=== PATIENT | female | born 1975 | race Caucasian/White ===

== ENCOUNTER → 2018-04-21 | Outpatient (CLI) | payer OTHER ==
[~2018-04-21] MED LIST: HYDR-4309 PO; ONDA4TAB PO; PREN-127 PO; PREN1TAB44
== END ==
LOC: LAB 15:42
PROVIDERS: ATTEND Obstetrics & Gynecology
DX: Z34.92 Encounter for supervision of normal pregnancy, unspecified, second trimester (principal)
CPT/HCPCS: 36415; 82105

== ENCOUNTER → 2018-05-21 | Outpatient (CLI) | payer OTHER ==
--- NOTE | 2018-05-21 11:24 | RADIOLOGY IMAGING REPORT ---
FACILITY: [facility] PATIENT NAME: Calli Boalnd : 1975 MR: [id number] V: [id number] EXAM DATE: ORDERING PHYSICIAN: DOMITILA ALFREDO TECHNOLOGIST: Location: [facility] [place] Patient: Calli Boland : 1975 Visit/Account:[id number] Date of Sevice: 05/21/2018 OB ANATOMICAL SURVEY INDICATION: Anatomic survey, advanced maternal age. COMPARISON: None available FINDINGS: Single, living, intrauterine gestation is present in vertex position. Gestational heart rate measure d 153 bpm. Amniotic fluid index 16 cm, largest pocket 4.7 cm. The placenta is low-lying and posteriorly positioned without previa. The lower placental tip resides 1.3 cm from the cervix. BPD 5 cm, 21 weeks two days Head circumflex conference 18.8 cm, 21 weeks one day Abdominal circumference 17 cm, 22 weeks zero days Femur length 3.3 cm, 20 weeks three days Estimated gestational age based on ultrasound 21 weeks two days Estimated gestational age based on last menstrual period is 20 weeks one day. Estimated gestational weight 408 g, 94th percentile. Normal facial profile, normal spine, normal kidneys, normal outflow tracts, normal four-chamber heart view, normal stomach and bladder, normal intracranial structures, expected three-vessel cord, four e xtremities visualized, normal cord insertion. The cervix is normal in length measuring 5.6 cm. IMPRESSION: 1. Single, living, intrauterine gestation at 21 weeks two days based on ultrasound. Estimated gestat ional age based on last menstrual period is 20 weeks one day. 2. Normal anatomic survey. 3. ASMITA 16 cm. 4. Posterior placenta without previa. Report Dictated By: Gonzales Cook MD at 05/21/2018 11:14 AM Report E-Signed By: Gonzales Cook MD at 05/21/2018 11:20 AM WSN:DENYS
== END ==
LOC: RAD 07:59
PROVIDERS: ATTEND Obstetrics & Gynecology
DX: Z02.9 Encounter for administrative examinations, unspecified (principal)
CPT/HCPCS: 76811

== ENCOUNTER → 2018-05-26 | Outpatient (CLI) | payer OTHER | LOC: LAB 10:31 | PROVIDERS: ATTEND Obstetrics & Gynecology | DX: R00.2 Palpitations (principal) | CPT/HCPCS: 36415; 84443 ==

== ENCOUNTER → 2018-07-17 | Outpatient (CLI) | payer OTHER ==
[~2018-07-17] MED LIST changes: +DIPH0.5D12 IM; +RHO(150015 IM
[2018-07-17 14:51] LABS: PLATELET COUNT, AUTOMATED 215 K/uL (150-450)
== END ==
LOC: LAB 09:29
PROVIDERS: ATTEND Obstetrics & Gynecology
DX: O09.90 Supervision of high risk pregnancy, unspecified, unspecified trimester (principal)
CPT/HCPCS: 36415; 82950; 85025

== ENCOUNTER → 2018-07-21 | Outpatient (CLI) | payer OTHER | LOC: LAB 08:38 | PROVIDERS: ATTEND Obstetrics & Gynecology | DX: O99.810 Abnormal glucose complicating pregnancy (principal) | CPT/HCPCS: 36415; 82951; 82952 ==

== ENCOUNTER → 2018-09-08 | Outpatient (CLI) | payer OTHER ==
[~2018-09-08] MED LIST changes: +FLU60SYR36 IM; -HYDR-4309 PO; +HYDR-653 PO
== END ==
LOC: LAB 11:59
PROVIDERS: ATTEND Obstetrics & Gynecology
DX: Z34.93 Encounter for supervision of normal pregnancy, unspecified, third trimester (principal)
CPT/HCPCS: 87081

== ENCOUNTER 2018-10-04 19:03 | Inpatient (IN) | payer OTHER ==
[~2018-10-04] VITALS: Ht 162.6 cm; Wt 70.3 kg
[~2018-10-04 19:03] MED LIST changes: +BENZ100C4 PO
[2018-10-04] MEDS ORDERED: FAMOTIDINE(*) 20MG/50ML PREMIX 50 ML IVPB PRN (19:07)
[2018-10-04] MEDS ORDERED: OXYTOCIN 30 UNIT/D5LR 500 ML 500 ML IV PRN (19:07)
[2018-10-04] MEDS ORDERED: ZOLPIDEM TARTRATE 5 MG TAB PO PRN ×2 (19:10→19:50)
[2018-10-04] MEDS ORDERED: MISOPROSTOL 25 MCG CAP PV PRN (19:10)
[2018-10-04] MEDS ORDERED: LIDOCAINE 1% LOCAL 300 MG/30ML INJ PRN (19:10)
[2018-10-04] MEDS ORDERED: DINOPROSTONE 10 MG INSERT PV ONE (19:10)
[2018-10-04] MEDS ORDERED: TERBUTALINE SULF 1 MG/ML VIAL SUBQ PRN (19:10)
[2018-10-04] MEDS ORDERED: METOCLOPRAMIDE 10 MG/2 ML SDV IVP PRN (19:10)
[2018-10-04] MEDS ORDERED: LIDOCAINE/SOD BICARB 8.4% SYR SC PRN (19:10)
[2018-10-04 19:30] VITALS: BP 136/79; Ht 162.6 cm; Wt 70.3 kg
[2018-10-04] MEDS ORDERED: CLINDAMYCIN 900 MG/D5W 50 ML 50 ML IVPB PRN (19:48)
[2018-10-04] MEDS ORDERED: ONDANSETRON 4 MG/2 ML VIAL IVP PRN (19:50)
--- NOTE | 2018-10-04 20:13 | History & Physical ---
History of Present Illness EDC per LMP: Oct 07, 2018 Estimated Gestational Age: 39.4 Chief Complaint Induction for AMA History of Present Illness 43-year-old at 39w4d by LMP presents for induction due to AMA. She denies UCx, VB, LOF. +FM. No preeclampsia symptoms. PNC by IMG. PNR reviewed. otherwise complicated by Rh negative. She also failed her 1hr GTT but passed her 3hr GTT. GBS negative. Posterior placenta. History Patient's Blood Type: O Negative Rubella Status: Immune Group B Strep Screen: Negative Obstetrical History: Hx 2 SABs Past Medical History: PMH: None PSH: Breast surgery, humerus fracture Allergies: Coded Allergies: Quinolones (Unverified Allergy, Unknown, 05/30/15) Sulfa (Sulfonamide Antibiotics) (Unverified Allergy, Unknown, 05/30/15) penicillin (Unverified Allergy, Unknown, 05/30/15) Social History: No T/E/D. . Family History: Colitis FATHER, , Age:50 Duodenal cancer BROTHER OR SISTER FH: Crohn's disease FATHER, , Age:50 FH: HTN (hypertension) paternal grandfather FH: colon cancer in relative <50 years old FATHER, , Age:50 FH: uterine cancer MOTHER, Age:69 Hereditary nonpolyposis colorectal cancer (HNPCC) MOTHER, Age:69 Med Rec Home Meds Active Scripts Benzonatate 100 Mg Cap (TESSALON PERLE 100 MG CAP) 100 Mg Capsule, 100 MG PO TID PRN for cough, #20 CAP 0 Refills Prov:DOMITILA ALFREDO MD 09/18/18 Reported Medications Vit No.124/Iron/FA ( Vitamin Tablet) 1 Each Tablet 04/20/18 Review of Systems Constitutional: No Fever Neurological: No Syncope Eyes: No Vision Change Cardiovascular: No Chest Pain, No Palpitations Respiratory: No Shortness of Breath Gastrointestinal: No Nausea, No Vomiting, No Diarrhea Genitourinary: No Dysuria Musculoskeletal: No Pain Psychiatric: No Depression, No Anxiety Exam General Exam Vital Signs VS reviewed General Apperance: Alert/Awake/No Acute Distress Cardiovascular: Regular Rate and Rhythm Respiratory: No Respiratory Distress Abdomen: Gravid - Non-Tender : Normal Musculoskeletal: No Weakness/Pain Extremities: No Cyanosis,Clubbing or Edema Integumentary: Skin Intact without Lesions or Rash Psychological: Alert & Oriented X3, Appropriate Mood & Affect Cervical Dialation: 0 Cervical Effacement (%): 75 Cervical Consistency: Moderate Cervical Position: Posterior Station: 0 Presentation: Vertex Uterine Contractions(Q min): 10 Uterine Contraction Strength: Mild UC Resting Tone: Soft Fetus FHT Category: I Assessment and Plan Problems: (1) AMA (advanced maternal age) primigravida 35+ Assessment & Plan: 43-year-old at 39w4d by LMP presents for induction due to AMA. Cervix is not favorable. Will initiate misoprostol for ripening. Continue to monitor. GBS negative. (2) Rh negative status during Assessment & Plan: Rhophylac last given 07/17/18. Will evaluate need . (3) 39 weeks gestation of Problem Qualifiers (1) AMA (advanced maternal age) primigravida 35+: Trimester: third trimester Qualified Codes: O09.513 - Supervision of elderly primigravida, third trimester (2) Rh negative status during : Trimester: third trimester Qualified Codes: O09.893 - Supervision of other high risk pregnancies, third trimester; Z67.91 - Unspecified blood type, rh negative DOMITILA ALFREDO MD Oct 04, 2018 20:13
[2018-10-04 20:20] LABS: PLATELET COUNT, AUTOMATED 205 K/uL (150-450)
[2018-10-04] MEDS: MISOPROSTOL 25 MCG CAP PV PRN (20:20)
[2018-10-05] MEDS: MISOPROSTOL 25 MCG CAP PV PRN (00:22)
[2018-10-05] MEDS: fentaNYL CITR 100 MCG/2 ML AMP IVP PRN ×2 (07:06→07:19)
[2018-10-05] MEDS: LR(*) 1000 ML BAG 1,000 ML IV PRN ×2 (08:00→09:23)
--- NOTE | 2018-10-05 08:25 | Labor Progress Note ---
Labor Subjective Progress Notes Subjective Patient is breathing through contractions. She has received one dose of Fentanyl. She is now requesting an epidural. Labor Objective Vital Signs Vital Signs Date Time Temp Pulse Resp B/P (MAP) Pulse Ox O2 Delivery O2 Flow Rate FiO2 10/04/18 19:30 97.4 85 16 136/79 (98) 95 Room Air Vaginal Discharge/Fluid?: Clear Fluid Cervical Dialation: 4 Cervical Effacement (%): 100 Cervical Consistency: Soft Cervical Position: Mid Station: 0 Presentation: Vertex Uterine Contractions(Q min): 3 Uterine Contraction Strength: Strong UC Resting Tone: Soft Fetus FHT Category: I General Exam General Appearance: Alert/Awake/No Acute Distress Abdomen: Gravid - Non-Tender Extremities: No Cyanosis,Clubbing or Edema Integumentary: Skin Intact without Lesions or Rash Psychological: Alert & Oriented X3, Appropriate Mood & Affect Other Result Diagram: 10/04/182003 Assessment and Plan Problems: (1) AMA (advanced maternal age) primigravida 35+ Assessment & Plan: Pt has progressed to active labor after SROM at 0300 with cytotec x 2. Anticipate . (2) Rh negative status during Assessment & Plan: Rhophylac last given 07/17/18. Will evaluate need . (3) 39 weeks gestation of Problem Qualifiers (1) AMA (advanced maternal age) primigravida 35+: Trimester: third trimester Qualified Codes: O09.513 - Supervision of elderly primigravida, third trimester (2) Rh negative status during : Trimester: third trimester Qualified Codes: O09.893 - Supervision of other high risk pregnancies, third trimester; Z67.91 - Unspecified blood type, rh negative DOMITILA ALFREDO MD Oct 05, 2018 08:25
[2018-10-05] MEDS ORDERED: FENTANYL/ROPIVACAINE 100 ML BAG EPI PRN (08:30)
[2018-10-05] MEDS ORDERED: LIDO/EPI 2% MPF 1:200,000 20ML EPI PRN (08:30)
[2018-10-05] MEDS ORDERED: BUPIVACAINE 0.5% INJ 30ML VIAL EPI PRN (08:30)
[2018-10-05] MEDS ORDERED: BUPIVACAINE 0.25% MPF INJ EPI PRN (08:30)
[2018-10-05] MEDS ORDERED: EPIDURAL KEYS XX PRN (08:30)
[2018-10-05] MEDS ORDERED: fentaNYL CITR 100 MCG/2 ML AMP IT PRN (08:30)
[2018-10-05] MEDS ORDERED: LIDOCAINE/PF 2% 200MG/10ML AMP 200 MG/10 ML AMPUL EPI PRN (08:30)
--- NOTE | 2018-10-05 12:37 | Anesthesia OB Pre-Anes Eval ---
History of Present Illness Anesthesia Start Date: Oct 05, 2018 Anesthesia Start Time: 08:40 OB Anesthesia Diagnosis: induction - medical (MATERNAL AGE) Complications: None known EDC: Oct 07, 2018 : 3 Para: 0 Vital Signs: Vital Signs Date Time Temp Pulse Resp B/P (MAP) Pulse Ox O2 Delivery O2 Flow Rate FiO2 10/04/18 19:30 97.4 85 16 136/79 (98) 95 Room Air Pain Ratin Heart Tones: WNL Result Diagram: 10/04/182003 Height (Inches): 64.00 Weight (Pounds): 155 BMI Calculated: 26.60 Past Medical History Medical History: scoliosis (diagnosed as a Teenager. Wore back brace. ) Surgical History: other (arm) Previous Anesthesia: general Attended Childbirth Classes?: Yes, Attended [employer] Hx Anesthesia Reactions: No Hx Family Anesthesia Reaction: No Current Medications: pain medication (IV Fentenyl 100 mcgs total) Home Meds Reported Medications Vit No.124/Iron/FA ( Vitamin Tablet) 1 Each Tablet 04/20/18 Discontinued Scripts Benzonatate 100 Mg Cap (TESSALON PERLE 100 MG CAP) 100 Mg Capsule, 100 MG PO TID PRN for cough, #20 CAP 0 Refills Prov:DOMITILA ALFREDO MD 09/18/18 Allergies: Coded Allergies: Quinolones (Unverified Allergy, Unknown, 05/30/15) Sulfa (Sulfonamide Antibiotics) (Unverified Allergy, Unknown, 05/30/15) penicillin (Unverified Allergy, Unknown, 05/30/15) Anesthesia OB ROS Neurological: No migraines/headaches, No seizures, No neuropathy ENT: Denies Tooth caps, Denies Loose teeth, Denies Chipped teeth, Denies Dentures, Denies Bridges, Denies Retainers, Denies Veneers, Denies Implants, Denies Tongue ring; Other Pulmonary: No asthma, No smoker (pks/day/yrs) Airway Class: ll Cardiovascular ROS: No edema, No arrhythmia GI ROS: clear liquids Last Solids Date: Oct 04, 2018 Last Solids Time: 20:00 ROS: No Herpes, No STD(s), No Liver Disease, No Renal Disease; Other Endocrine ROS: No diabetes, No gestational diabetes, No thyroid disorder Musculoskeletal ROS: No low back pain, No low back injury; scoliosis (denies any major problems, ..ocassional backache"); No other ASA Classification: 2 Assessment and Plan Assessment Past Medical, Surgical, Family and Obstetric Histories reviewed. Please see ACOG chart. Epidural anesthesia risks, complications and benefits explained to patient's satisfaction for labor and vaginal delivery and/or section. General anesthesia risks and benefits explained to patient's satisfaction. MSO states they went to Childbirth Classes at [facility] but doesn't "remember much from it". Questions invited, none asked. HÉCTOR MARTINEZ CRNA Oct 05, 2018 12:37
--- NOTE | 2018-10-05 12:44 | Procedure Note ---
Anesthetic Placement Note Anesthesia Plan: CSE Permit for Anesthesia Signed: Yes Anesthesia Technique: Patient Sitting Anesthesia Prep: Chlorhexidine Interspace: L 3-4 Local Anesthetic: 1% Lidocaine, 25 Gauge Needle Amount Local - cc's: 2 Anesthesia Needle: 17g Touhy/Schliff Anesthesia Attempts: 1 Loss of Resistance: Air Depth of FLORINA (cm): 5 Epidural Needle Placement: No CSF, No Blood, No Parasthesia Intrathecal Needle: 27 Gauge Pencan Cerebral Spinal Fluid: Yes, Clear Catheter Insertion (cm): 8 Catheter Type: Pool - Spring Wound Epidural Dressing: Tegaderm, Tape, Adhesive Adams Anesthesia Tray: Lot Number ([id number]), Expiration Date (2019-08-16), Reference Number ([id number]) Anesthesia Medications: Intrathecal Dose: mcg Fentanyl (15), mg Marcaine MPF (1.75), Time (903) Epidural Test Dose: 1.5 Lido/Epi (1:200,000), Dose - mL (3), Time (935), Negative Epidural Loading Dose: 0.2% Ropivicaine, With Fentanyl 2mcg/ml, Dose - ml (5), Time (36) Epidural Infusion: 0.2% Ropivicaine, With Fentanyl 2mcg/ml, Start Time: (935) Epidural Pump Setting: Bolus Dose - mL (5), Lockout - Minutes (20), Maintenance Rate - mL/hr (6), Maximum per Hour - mL (21) Complications: None Comment: Pt. tolerated procedure very well. Ultra sound was used to locate space as well as scoliosis. Definite change in curvature even with towel under left hip. Pt. became comfortable within 7 minutes or less. HÉCTOR MARTINEZ CRNA Oct 05, 2018 12:44
--- NOTE | 2018-10-05 12:46 | Anesthesia Progress Note ---
Progress/Maintenance Anesthesia Note Date: Oct 05, 2018 Anesthesia Note Time: 10:45 Pain Intensity: 0 Pump: On Pump Rate (ML/HR): 3 Sensory Level: T-12 Motor Level: Bending Knees-Bilateral Dilatation: 4 Position: Right, Tilt Assessment and Plan Assessment Pump rate decreased from 6ml/hr to 3ml/hr per pt's request. She is able to move her legs but does not feel contractions. Instructed to notify providers when she does feel contractions again. HÉCTOR MARTINEZ CRNA Oct 05, 2018 12:46
--- NOTE | 2018-10-05 12:52 | Anesthesia Progress Note ---
Progress/Maintenance Anesthesia Note Date: Oct 05, 2018 Anesthesia Note Time: 11:50 Pain Intensity: 0 Pump: Off Sensory Level: T-12 Motor Level: Bending Knees-Bilateral, Other (rt leg heavy) Dilatation: 10 Position: Semi-Fowlers Assessment and Plan Assessment No further medication has been given. Pump turned off as pt. does not feel strong contractions, "occasionally some tightening". Pt. is to begin pushing. Again, she is instructed to notify provider if she starts to feel strong contractions. HÉCTOR MARTINEZ CRNA Oct 05, 2018 12:52
[2018-10-05] MEDS ORDERED: CALCIUM CARBONATE 500 MG CHEW PO ONE (13:00)
[2018-10-05] MEDS: ACETAMINOPHEN 500 MG TAB PO PRN ×2 (13:45→13:46)
--- NOTE | 2018-10-05 14:08 | Anesthesia Progress Note ---
Progress/Maintenance Anesthesia Note Date: Oct 05, 2018 Anesthesia Note Time: 13:45 Pain Intensity: 5 Pump: On Pump Rate (ML/HR): 6 Sensory Level: T-12 Motor Level: Bending Knees-Bilateral Dilatation: 10 Position: Semi-Fowlers (high) Drug Bolus: Other (Fentenyl 85 mcgs) Assessment and Plan Assessment Pt. requesting more epidural medications. Pump turned on at 3 ml/hr. and bolus given. Within 10 minutes, pt. requested more medication. Bolus of fentenyl given and pump increased to 6 ml/hr. HÉCTOR MARTINEZ CRNA Oct 05, 2018 14:08
[2018-10-05] MEDS ORDERED: GLYCERIN/WITCH HAZEL LEAF 1 PK TP PRN (15:05)
[2018-10-05] MEDS ORDERED: ACETAMINOPHEN 325 MG TAB PO PRN (15:05)
[2018-10-05] MEDS ORDERED: MAGNESIUM HYDROXIDE* 30ML UDCP PO PRN (15:05)
[2018-10-05] MEDS ORDERED: HYDROCORTISONE 2.5% CR 30GM TB PR PRN (15:05)
[2018-10-05] MEDS ORDERED: LANOLIN OINT 7 GM TUBE TP PRN (15:05)
[2018-10-05] MEDS ORDERED: APAP/HYDROCODONE 325/5 TAB PO PRN (15:05)
[2018-10-05] MEDS ORDERED: BENZOCAINE 20% 60 ML BTL TP PRN (15:05)
[2018-10-05 15:11] VITALS: BP 101/65
--- NOTE | 2018-10-05 15:55 | Anesthesia Progress Note ---
Progress/Maintenance Anesthesia Note Date: Oct 05, 2018 Anesthesia Note Time: 14:40 Pain Intensity: 0 Pump: Off Motor Level: Bending Knees-Bilateral, Other (rt leg heavy) Dilatation: 10 Position: Semi-Fowlers Assessment and Plan Assessment Called to pt's room and found that pt. has delivered. No further medications were given. She had excellent tolerance of delivery and repair work. Empty syringe attached to epidural and RN agrees to remove with ambulation. Patient instructed the first ambulation is to be with help of nursing staff. Instructed to preform deep knee bends at bedside before walking. HÉCTOR MARTINEZ AMPLIFIER MECHANIC Oct 05, 2018 15:55
[2018-10-05 15:57] VITALS: BP 116/73
[2018-10-05] MEDS ORDERED: IBUPROFEN 800 MG TAB PO SCH (17:00)
--- NOTE | 2018-10-05 17:39 | OB Delivery Note ---
Delivery Note Vaginal Delivery Type: Spont. Vaginal Delivery Delivery Date: Oct 05, 2018 Delivery Time: 14:32 Estimated Gestational Age(wks): 39.4 Length of Labor Stage II (hrs): 0.5 Labor Stage III (minutes): 4 Delivery Anesthesia: Epidural Sex: Male Infant Weight (gms): 3572 [place] Apgars: 1 Minute (8), 5 Minute (9) Repair Needed: 1st Degree Estimated Blood Loss: 300 DOMITILA ALFREDO MD Oct 05, 2018 17:39
[2018-10-05] MEDS ORDERED: IBUP800T37 PO (17:43)
[2018-10-05] MEDS ORDERED: LOR5/325 PO (17:43)
[2018-10-05 19:00] VITALS: BP 125/61
[2018-10-05] MEDS: DOCUSATE CALCIUM 240 MG CAP PO SCH (21:29)
[2018-10-05 23:03] VITALS: BP 130/76
[2018-10-05] MEDS: IBUPROFEN 800 MG TAB PO SCH (23:09)
--- NOTE | 2018-10-06 03:13 | DELIVERY NOTE ---
DELIVERY DATE: October 05, 2018 SURGEON: Ginna Cole MD ANESTHESIA: Epidural by Mary Kate Hartmann CRNA. PREOPERATIVE DIAGNOSIS Intrauterine at 39 weeks and 4 days, presenting for induction of labor due to advanced maternal age. POSTOPERATIVE DIAGNOSIS 1. Intrauterine at 39 weeks and 4 days, presenting for induction of labor due to advanced maternal age. 2. Delivery of a viable male infant at 1432 hours, weighing 3572 g or 7 pounds 14 ounces, with Apgars of 8 at one minute and 9 at five minutes. PROCEDURE Spontaneous vaginal delivery. ESTIMATED BLOOD LOSS 300 mL. INDICATIONS This patient is a 43-year-old 3, para 0-0-2-0 who presents at 39 weeks and 4 days for an induction of labor due to advanced maternal age. At the time of presentation, she was closed, 75, and zero. She received two doses of Cytotec vaginally, after which time she experienced spontaneous rupture of membranes at 0309 hours. She then was able to progress to complete, 100% effaced, and +1 station at 1406 hours. She did have Pitocin augmentation at the end to assist with pushing. She was therefore was allowed to push, bringing the infant's vertex to the perineum. She also received an epidural for anesthesia. PROCEDURE The patient was properly identified and placed in the dorsal lithotomy position. She was prepped and draped in the usual fashion for a vaginal procedure. She was asked to push and was able to deliver the infant's vertex spontaneously in the MISAEL position. A nuchal cord was checked but not noted. The anterior shoulder delivered easily, followed by the posterior shoulder. The rest of the was easily delivered. There was a body cord noted, and the infant was delivered through this. The infant had spontaneous cry and spontaneous movement of all four extremities. The infant was then passed to the mother's abdomen, where oropharynx and nasopharynx were bulb-suctioned, and nursing personnel was in attendance. After two minutes, the cord was clamped x2 and cut. Cord blood was then obtained and passed off the table. Pitocin was started through the IV fluid to help firm the uterus. The placenta subsequently delivered spontaneously at 1436 hours and was passed off the table. Examination of the cervix, vaginal vault, and perineum revealed a first-degree midline laceration, which was repaired using a 3-0 Vicryl. The patient tolerated this procedure well and recovered in Labor and Delivery without incident. GENOVEVA
[2018-10-06 03:44] VITALS: BP 108/68
[2018-10-06] MEDS: IBUPROFEN 800 MG TAB PO SCH ×2 (07:33→16:13)
[2018-10-06 07:45] VITALS: BP 113/71
--- NOTE | 2018-10-06 08:14 | OB/GYN Progress Note ---
OB Subjective Progress Notes Subjective Doing well. Pain controlled with oral medications. Tolerating regular diet. Ambulating. Voiding. Normal lochia. No preeclampsia symptoms. OB Objective Physical Exam Vital Signs Date Time Temp Pulse Resp B/P (MAP) Pulse Ox O2 Delivery O2 Flow Rate FiO2 10/06/18 03:44 97.2 79 16 108/68 (81) 94 Room Air Intake and Output 10/06/18 07:00 Intake Total 2000 ml Output Total 1000 ml Balance 1000 ml Intake IV Total 2000 ml Output Urine Total 1000 ml # Voids 3 General Appearance: Alert/Awake/No Acute Distress Cardiovascular: Normal Rhythm & Peripheral Pulses, Regular Rate and Rhythm Respiratory: No Respiratory Distress, Clear to Auscultation Abdomen: Soft, Non-Tender, Non-Distended, Fundus Firm Musculoskeletal: No Weakness/Pain Extremities: No Cyanosis,Clubbing or Edema Integumentary: Skin Intact without Lesions or Rash Psychological: Alert & Oriented X3, Appropriate Mood & Affect Result Diagram: 10/04/182003 Assessment and Plan Problems: (1) examination following vaginal delivery Assessment & Plan: PPD#2. Meeting milestones. Desires discharge to home today. Discussed routine expectations. Questions answered. She may need to stay longer if doesn't improve today. If it does, follow up in clinic in 2-3wks for check. (2) Rh negative status during Assessment & Plan: Baby is Rh negative. No rhophylac needed. Problem Qualifiers (1) Rh negative status during : Trimester: third trimester Qualified Codes: O09.893 - Supervision of other high risk pregnancies, third trimester; Z67.91 - Unspecified blood type, rh negative DOMITILA ALFREDO MD Oct 06, 2018 08:14
--- NOTE | 2018-10-06 08:16 | OB/GYN Discharge Summary ---
Discharge Summary Reason for Hosp/Final Diag: (1) examination following vaginal delivery Hospital Course & Plan: PPD#2. Meeting milestones. Desires discharge to home today. Discussed routine expectations. Questions answered. She may need to stay longer if doesn't improve today. If it does, follow up in clinic in 2-3wks for check. (2) Rh negative status during Hospital Course & Plan: Baby is Rh negative. No rhophylac needed. Lates Vital Signs Vital Signs Date Time Temp Pulse Resp B/P (MAP) Pulse Ox O2 Delivery O2 Flow Rate FiO2 10/06/18 03:44 97.2 79 16 108/68 (81) 94 Room Air Weight (Pounds): 155 Result Diagram: 10/04/182003 Condition: Improved Discharge: Home, Self Senior Care Meds Active Scripts Hydrocodone Bit/Acetaminophen (HYDROCODON-ACETAMINOPHEN 5-325) 1 Each Tablet, 1 EACH PO Q4-6H PRN for PAIN, #15 TAB 0 Refills Prov:DOMITILA ALFREDO MD 10/05/18 Reported Medications Vit No.124/Iron/FA ( Vitamin Tablet) 1 Each Tablet 04/20/18 Discontinued Scripts Benzonatate 100 Mg Cap (TESSALON PERLE 100 MG CAP) 100 Mg Capsule, 100 MG PO TID PRN for cough, #20 CAP 0 Refills Prov:DOMITILA ALFREDO MD 09/18/18 Follow up Referrals: [employer] - In Three Weeks @ [facility] [place] with DOMITILA ALFREDO MD Discharge Diet: As Tolerates Discharge Activity: No Heavy Lifting > 10lb, Pelvic Rest Problem Qualifiers (1) Rh negative status during : Trimester: third trimester Qualified Codes: O09.893 - Supervision of other high risk pregnancies, third trimester; Z67.91 - Unspecified blood type, rh negative DOMITILA ALFREDO MD Oct 06, 2018 08:15
[2018-10-06] MEDS ORDERED: INFLUENZA VIRUS VAC 0.5ML SYR IM ONLY ONE (09:00)
[2018-10-06] MEDS ORDERED: DIPHTH/TETANUS/ACEL. PERTUSSIS IM ONLY ONE (09:00)
[2018-10-06] MEDS ORDERED: MEASLES,MUMP,RUBELLA VAC 0.5ML SUBQ ONE (09:00)
--- NOTE | 2018-10-06 09:16 | Anesthesia Post Eval Note ---
Anesthesia Post Eval Note Vital Signs Date Time Temp Pulse Resp B/P (MAP) Pulse Ox O2 Delivery O2 Flow Rate FiO2 10/06/18 03:44 97.2 79 16 108/68 (81) 94 Room Air Pt able to participate in Eval: Yes Cardiovascular Status: Satisfactory Respiratory Status: Satisfactory Pain Managment: Satisfactory PO Nausea/Vomiting: Satisfactory Temperature Management: Satisfactory Mental Status: Satisfactory, Alert, Oriented X3 Post-Op Hydration Status: Satisfactory, Tolerating PO Well, Voiding w/o Difficulty Anesthesia Type: CSE Anesthesia Tolerance: Tolerated procedure well without apparent anesthetic complications. LP site clear, no redness or edema. Denies headache or any residual paresthesia. Vital Signs Stable, Patient comfortable and condition stable. HÉCTOR MARTINEZ DINKEY ENGINE FIRER Oct 06, 2018 09:16
[2018-10-06] MEDS: DOCUSATE CALCIUM 240 MG CAP PO SCH (09:26)
[2018-10-06 11:30] VITALS: BP 107/70
[2018-10-06 15:00] VITALS: BP 105/60
== END 2018-10-06 18:00 | disposition home or self-care (01) | DRG 807 ==
LOC: OB 19:03
PROVIDERS: ADMIT Obstetrics & Gynecology; ATTEND Obstetrics & Gynecology
PROC: 3E033VJ Introduction of Other Hormone into Peripheral Vein, Percutaneous Approach (ICD-10-PCS; 2018-10-04)
PROC: 10E0XZZ Delivery of Products of Conception, External Approach (ICD-10-PCS; principal; 2018-10-05)
PROC: 0HQ9XZZ Repair Perineum Skin, External Approach (ICD-10-PCS; 2018-10-05)
DX: O36.0130 Maternal care for anti-D [Rh] antibodies, third trimester, not applicable or unspecified (principal); Z37.0 Single live birth; O70.0 First degree perineal laceration during delivery; Z3A.39 39 weeks gestation of pregnancy
CPT/HCPCS: 85025; 86703; 86850; 86870; 86900; 86901; J2590; J3010; J7120; S0020

== ENCOUNTER 2018-10-27 11:27 | Emergency (ER) | payer OTHER ==
[2018-10-04 19:30] VITALS: Wt 61.2 kg
--- NOTE | 2018-10-27 11:25 | ER Report ---
History and Physical Time Seen By MD: 11:25 HPI/ROS CHIEF COMPLAINT: hemorrhage HISTORY OF PRESENT ILLNESS: Patient is a 43-year-old female here with complaints of hemorrhage 3 weeks status post vaginal delivery to a 39 week 4 day child with no complications. Patient takes a vitamin but does not take other medications and denies other medical history. She is , hemodynamically stable at time of evaluation. Patient reports that at approximately 10:00 she was taking a shower when she noticed a gush of blood into the tub. She reportedly called her mother to obtain more pads and proceeded to sit on the toilet at which time she continued to bleed. She did have positive loss of consciousness for several seconds which was witnessed by the patient's mother. REVIEW OF SYSTEMS: Constitutional: No fever, no chills. Eyes: No discharge. ENT: No sore throat. Cardiovascular: No chest pain, no palpitations. Respiratory: No cough, no shortness of breath. Gastrointestinal: No abdominal pain, no vomiting. Genitourinary: + Vaginal bleed Musculoskeletal: No back pain. Skin: No rashes. Neurological: No headache. Allergies: Coded Allergies: Quinolones (Unverified Allergy, Unknown, 10/27/18) Sulfa (Sulfonamide Antibiotics) (Unverified Allergy, Unknown, 10/27/18) penicillin (Unverified Allergy, Unknown, 10/27/18) Home Meds Active Scripts Ibuprofen (IBUPROFEN) 800 Mg Tablet, 1 TAB PO Q8H PRN for PAIN, #30 TAB 0 Refills TAKE WITH FOOD EVERY 8 HOURS Prov:DOMITILA COLE MD 10/05/18 Reported Medications Vit No.124/Iron/FA ( Vitamin Tablet) 1 Each Tablet 04/20/18 Discontinued Scripts Hydrocodone Bit/Acetaminophen (HYDROCODON-ACETAMINOPHEN 5-325) 1 Each Tablet, 1 EACH PO Q4-6H PRN for PAIN, #15 TAB 0 Refills Prov:DOMITILA COLE MD 10/05/18 Hx Smoking: No Smoking Status: Never Smoker Exposure to Second Hand Smoke?: No Constitutional Vital Sign - Last 24 Hours 10/27/18 10/27/18 10/27/18 10/27/18 11:30 11:30 11:33 11:40 Temp 99.3 Pulse 72 71 Resp 18 B/P (MAP) 115/86 115/86 (96) Pulse Ox 100 100 O2 Delivery Nasal Cannula O2 Flow Rate 2.0 10/27/18 10/27/18 10/27/18 10/27/18 11:50 11:52 12:00 12:10 Pulse 69 74 66 Resp 16 10 B/P (MAP) 117/87 (97) 127/88 (101) Pulse Ox 100 100 100 10/27/18 10/27/18 12:15 12:30 Pulse 71 69 Resp 11 10 B/P (MAP) 112/82 (92) 110/83 (92) Pulse Ox 100 100 Physical Exam General Appearance: The patient is alert, has no immediate need for airway protection and no signs of toxicity. No acute distress Eyes: Pupils equal and round no pallor or injection. ENT, Mouth: Mucous membranes are moist. Respiratory: There are no retractions, lungs are clear to auscultation. Cardiovascular: Regular rate and rhythm. Gastrointestinal: Abdomen is soft and non tender, no masses, bowel sounds normal. Neurological: No focal neurological deficits Skin: Warm and dry, no rashes. Musculoskeletal: Neck is supple non tender. Extremities are nontender, nonswollen and have full range of motion. DIFFERENTIAL DIAGNOSIS: After history and physical exam differential diagnosis was considered for uterine atony, uterine rupture, endometritis, endometriosis Medical Decision Making Data Points Result Diagram: 10/27/18 1136 10/27/18 1136 Laboratory Hematology Test 10/27/18 11:36 Red Blood Count 4.62 M/uL (4.17-5.56) Mean Corpuscular Volume 94.2 fL (80.0-96.0) Mean Corpuscular Hemoglobin 31.4 pg (26.0-33.0) Mean Corpuscular Hemoglobin Concent 33.3 g/dL (32.0-36.0) Red Cell Distribution Width 12.5 % (11.5-14.5) Mean Platelet Volume 8.0 fL (7.2-11.1) Neutrophils (%) (Auto) 61.8 % (39.4-72.5) Lymphocytes (%) (Auto) 26.2 % (17.6-49.6) Monocytes (%) (Auto) 7.2 % (4.1-12.4) Eosinophils (%) (Auto) 4.1 % (0.4-6.7) Basophils (%) (Auto) 0.7 % (0.3-1.4) Nucleated RBC Relative Count (auto) 0.0 /100WBC Neutrophils # (Auto) 4.1 K/uL (2.0-7.4) Lymphocytes # (Auto) 1.7 K/uL (1.3-3.6) Monocytes # (Auto) 0.5 K/uL (0.3-1.0) Eosinophils # (Auto) 0.3 K/uL (0.0-0.5) Basophils # (Auto) 0.0 K/uL (0.0-0.1) Nucleated RBC Absolute Count (auto) 0.00 K/uL Prothrombin Time 12.2 seconds (12.0-14.4) Prothromb Time International Ratio 0.90 Activated Partial Thromboplast Time 26 seconds (23-35) Fibrinogen 389 mg/dL (169-449) Sodium Level 138 mmol/L (137-145) Potassium Level 3.6 mmol/L (3.5-5.0) Chloride Level 106 mmol/L (98-107) Carbon Dioxide Level 26 mmol/L (22-31) Blood Urea Nitrogen 14 mg/dl (7-18) Creatinine 0.80 mg/dl (0.52-1.04) Glomerular Filtration Rate Calc > 60.0 Random Glucose 84 mg/dl (75-110) Calcium Level 8.8 mg/dl (8.4-10.2) Total Bilirubin 0.3 mg/dl (0.2-1.3) Aspartate Amino Transf (AST/SGOT) 25 U/L (0-35) Alanine Aminotransferase (ALT/SGPT) 23 U/L (0-56) Alkaline Phosphatase 70 U/L (0-126) Total Protein 6.2 g/dl (6.3-8.2) Albumin 3.5 g/dl (3.5-5.0) Chemistry Test 10/27/18 11:36 White Blood Count 6.6 k/uL (4.5-11.0) Red Blood Count 4.62 M/uL (4.17-5.56) Hemoglobin 14.5 g/dL (12.0-16.0) Hematocrit 43.6 % (34.0-47.0) Mean Corpuscular Volume 94.2 fL (80.0-96.0) Mean Corpuscular Hemoglobin 31.4 pg (26.0-33.0) Mean Corpuscular Hemoglobin Concent 33.3 g/dL (32.0-36.0) Red Cell Distribution Width 12.5 % (11.5-14.5) Platelet Count 246 K/uL (150-450) Mean Platelet Volume 8.0 fL (7.2-11.1) Neutrophils (%) (Auto) 61.8 % (39.4-72.5) Lymphocytes (%) (Auto) 26.2 % (17.6-49.6) Monocytes (%) (Auto) 7.2 % (4.1-12.4) Eosinophils (%) (Auto) 4.1 % (0.4-6.7) Basophils (%) (Auto) 0.7 % (0.3-1.4) Nucleated RBC Relative Count (auto) 0.0 /100WBC Neutrophils # (Auto) 4.1 K/uL (2.0-7.4) Lymphocytes # (Auto) 1.7 K/uL (1.3-3.6) Monocytes # (Auto) 0.5 K/uL (0.3-1.0) Eosinophils # (Auto) 0.3 K/uL (0.0-0.5) Basophils # (Auto) 0.0 K/uL (0.0-0.1) Nucleated RBC Absolute Count (auto) 0.00 K/uL Prothrombin Time 12.2 seconds (12.0-14.4) Prothromb Time International Ratio 0.90 Activated Partial Thromboplast Time 26 seconds (23-35) Fibrinogen 389 mg/dL (169-449) Glomerular Filtration Rate Calc > 60.0 Calcium Level 8.8 mg/dl (8.4-10.2) Total Bilirubin 0.3 mg/dl (0.2-1.3) Aspartate Amino Transf (AST/SGOT) 25 U/L (0-35) Alanine Aminotransferase (ALT/SGPT) 23 U/L (0-56) Alkaline Phosphatase 70 U/L (0-126) Total Protein 6.2 g/dl (6.3-8.2) Albumin 3.5 g/dl (3.5-5.0) Coagulation Test 10/27/18 11:36 Prothrombin Time 12.2 seconds Prothromb Time International Ratio 0.90 Activated Partial Thromboplast Time 26 seconds Fibrinogen 389 mg/dL ED Course/Re-evaluation ED Course Patient is a 43-year-old female 3 weeks to an uncomplicated vaginal delivery at 39.4 weeks gestational age. Patient reportedly started bleeding on the shower and had a brief syncopal episode after sitting on the toilet. She did pass a large clot while in the emergency department. Blood counts were stable. Patient did receive tranexamic acid, oxytocin at time of arrival as well as normal saline bolus. Dr. Cole who is the patient's CURRICULUM ASSISTANT was kind enough to this that the patient while she was in the emergency department and called in antibiotics and Methergine to the pharmacy for outpatient treatment and arranged for follow-up in clinic. Patient's labs were stable, fibrinogen was normal. Patient was stable at time of discharge. Decision to Disposition Date: Oct 27, 2018 Decision to Disposition Time: 13:26 Depart Departure Latest Vital Signs Vital Signs Date Time Temp Pulse Resp B/P (MAP) Pulse Ox O2 Delivery O2 Flow Rate FiO2 10/27/18 12:30 69 10 110/83 (92) 100 10/27/18 11:30 99.3 Nasal Cannula 10/27/18 11:30 2.0 Impression: Primary Impression: Vaginal bleeding Additional Impression: Endometritis Condition: Improved Disposition: HOME OR SELF-CARE Referrals: DOMITILA COLE MD (PCP) Patient Instructions: Bleeding (GEN) Additional Instructions: Please take your antibiotics as prescribed by Dr. Cole. Please return promptly if you develop weakness, fever, inability to keep down food or fluids, abdominal pains, increased bleeding. Please follow-up with Dr. Cole as scheduled. Problem Qualifiers JEMMA DUMONT DO Oct 27, 2018 11:25
[~2018-10-27 11:27] MED LIST changes: -FLUC150T40 PO; -MISO200T59 PO; +NS(*) 0.9% 1000 ML BAG 1,000 ML IV ONE; +OXYTOCIN 10 UNIT/ML SDV IV ONE; +TRANEXAMIC AC 1000 MG/10ML SDV 1,000 MG in NS(*) 0.9% 50 ML BAG 50 ML IVPB ONE
[2018-10-27 11:59] LABS: PLATELET COUNT, AUTOMATED 246 K/uL (150-450)
[2018-10-27 12:18] LABS: INR 0.9
[2018-10-27 13:27] VITALS: BP 114/83
[2018-10-27] MEDS ORDERED: GENTAMICIN 80 MG/2 ML VIAL IM ONE ×3 (14:00→14:10)
[2018-10-27] MEDS ORDERED: GENTAMICIN 80 MG/2 ML VIAL ONE (14:06)
--- NOTE | 2018-10-27 14:31 | History & Physical ---
History of Present Illness Chief Complaint bleeding History of Present Illness 43-year-old presents with bleeding. She delivered on 10/05/18 via spontaneous vaginal delivery. She had an uncomplicated delivery. She was feeling generally well, but her bleeding never slowed down to less than moderate flow. 2 days ago she generally started feeling poorly. Her activity level decreased because she was not feeling well. She then started having heavy bleeding this morning. She was passing some clots and soaking through pads. She also felt a lot of vaginal pressure. She was on the toilet, having a bowel movement when she could feel more blood coming out. She waited on the toilet for her mom to bring her a pad, and experienced an episode of syncope. The ambulance brought her to the emergency department. Since arriving, she continues to have some bleeding. She is having some cramping. She denies fevers or chills. She is breast-feeding and this is going well, however her baby has not yet grown enough to make it back to birthweight. History Obstetrical History: G1 and G2: SABs G3: on 10/05/18 Past Medical History: PMH: None PSH: Breast surgery, humerus fracture Allergies: Coded Allergies: Quinolones (Unverified Allergy, Unknown, 10/27/18) Sulfa (Sulfonamide Antibiotics) (Unverified Allergy, Unknown, 10/27/18) penicillin (Unverified Allergy, Unknown, 10/27/18) Social History: No T/E/D. . Family History: Colitis FATHER, , Age:50 Duodenal cancer BROTHER OR SISTER FH: Crohn's disease FATHER, , Age:50 FH: HTN (hypertension) paternal grandfather FH: colon cancer in relative <50 years old FATHER, , Age:50 FH: uterine cancer MOTHER, Age:69 Hereditary nonpolyposis colorectal cancer (HNPCC) MOTHER, Age:69 Med Rec Home Meds Active Scripts Ibuprofen (IBUPROFEN) 800 Mg Tablet, 1 TAB PO Q8H PRN for PAIN, #30 TAB 0 Refills TAKE WITH FOOD EVERY 8 HOURS Prov:DOMITILA ALFREDO MD 10/05/18 Reported Medications Vit No.124/Iron/FA ( Vitamin Tablet) 1 Each Tablet 04/20/18 Discontinued Scripts Hydrocodone Bit/Acetaminophen (HYDROCODON-ACETAMINOPHEN 5-325) 1 Each Tablet, 1 EACH PO Q4-6H PRN for PAIN, #15 TAB 0 Refills Prov:DOMITILA ALFREDO MD 10/05/18 Review of Systems Constitutional: No Fever, No Chills Neurological: Syncope Eyes: No Vision Change Cardiovascular: No Chest Pain Respiratory: No Shortness of Breath, No Cough Gastrointestinal: No Nausea, No Vomiting, No Diarrhea Genitourinary: No Dysuria Musculoskeletal: No Pain Psychiatric: No Depression, No Anxiety Exam General Exam Vital Signs Vital Signs Date Time Temp Pulse Resp B/P (MAP) Pulse Ox O2 Delivery O2 Flow Rate FiO2 10/27/18 13:27 114/83 (93) Room Air 10/27/18 13:20 86 14 95 10/27/18 11:30 99.3 10/27/18 11:30 2.0 General Apperance: Alert/Awake/No Acute Distress Neuro: No Gross deficits Eyes: Normal Extraocular Movement & Vison Respiratory: No Respiratory Distress : Other (abundant blood clot is seen in the vaginal cavity, and was removed with sponge sticks. There is a small clot in the cervix which was removed with ring forceps. She is not actively hemorrhaging.) Extremities: No Cyanosis,Clubbing or Edema Integumentary: Skin Intact without Lesions or Rash Psychological: Alert & Oriented X3, Appropriate Mood & Affect Medical Decision Making Data Points Result Diagram: 10/27/18 1136 10/27/18 1136 Assessment and Plan Problems: (1) bleeding Assessment & Plan: 43-year-old presents with bleeding. Based on her symptoms and findings, I suspect she may have some endometritis causing this increase in bleeding. She was given gentamicin IM in the ER and will be sent home with oral clindamycin. However, it is also possible that she h as some retained products of conception. Therefore, she is given Methergine 24 hours to help the uterus clamped down. I suspect her bleeding will improve now that her blood clot has been removed from the vagina and cervix. She is scheduled for a follow-up appointment on 10/30/18 at 10:30 AM. She was given precautions in case symptoms should worsen. DOMITILA ALFREDO MD Oct 27, 2018 13:30
--- NOTE | 2018-10-28 08:12 | EKG ---
FACILITY: [facility] [place] PATIENT NAME: LASHA BERRY : [id number] MR: [id number] V: [id number] EXAM DATE: ORDERING PHYSICIAN: JEMMA DUMONT TECHNOLOGIST: ISSAC Paredes Reason : POST BLEEDING Blood Pressure : / mmHG Vent. Rate : 074 BPM Atrial Rate : 074 BPM P-R Int : 160 ms QRS Dur : 062 ms QT Int : 392 ms P-R-T Axes : 077 048 064 degrees QTc Int : 435 ms Normal sinus rhythm with sinus arrhythmia Low voltage QRS Borderline ECG No previous ECGs available Confirmed by Phuc Guerra ([id number]) on 10/28/2018 4:48:27 PM Referred By: TIM Confirmed By:Phuc Alvarenga
== END 2018-10-27 14:15 | disposition home or self-care (01) ==
LOC: ER 11:36
DX: O72.1 Other immediate postpartum hemorrhage (principal); N71.9 Inflammatory disease of uterus, unspecified
CPT/HCPCS: 85025; 85384; 85610; 85730; 86850; 86870; 86900; 86901; 93005; 96365; 96372; 99284; J1580; J2590; J7030; J7050; 82040; 82247; 82310; 82374; 82435; 82565; 82947; 84075; 84132; 84155; 84295; 84450; 84460; 84520

== ENCOUNTER → 2018-10-27 | Outpatient (CLI) | payer OTHER ==
[2018-10-04 19:30] VITALS: BMI 26.6
[~2018-10-27] MED LIST changes: +FLUC150T40 PO; +IBUP800T37 PO; +LOR5/325 PO; +MISO200T59 PO
== END ==
LOC: AMB 11:08
PROVIDERS: ATTEND Nurse Practitioner
DX: N93.9 Abnormal uterine and vaginal bleeding, unspecified (principal); O72.1 Other immediate postpartum hemorrhage
CPT/HCPCS: A0425; A0427

== ENCOUNTER → 2018-10-30 | Outpatient (CLI) | payer OTHER ==
[2018-10-04 19:30] VITALS: BMI 26.6
[~2018-10-30] MED LIST changes: +FLUC150T40 PO; -NS(*) 0.9% 1000 ML BAG 1,000 ML IV ONE; -OXYTOCIN 10 UNIT/ML SDV IV ONE; -TRANEXAMIC AC 1000 MG/10ML SDV 1,000 MG in NS(*) 0.9% 50 ML BAG 50 ML IVPB ONE
== END ==
LOC: LAB 11:43
PROVIDERS: ATTEND Obstetrics & Gynecology
DX: Z01.812 Encounter for preprocedural laboratory examination (principal); O72.2 Delayed and secondary postpartum hemorrhage
CPT/HCPCS: 36415; 85027; 86900; 86901

== ENCOUNTER → 2018-11-27 | Outpatient (CLI) | payer OTHER ==
[2018-10-04 19:30] VITALS: BMI 26.6
[~2018-11-27] MED LIST changes: +MISO200T59 PO
== END ==
LOC: LAB 12:39
PROVIDERS: ATTEND Obstetrics & Gynecology
DX: R39.15 Urgency of urination (principal)
CPT/HCPCS: 87088